=== PATIENT | female | born 1960 ===

== ENCOUNTER → 2023-10-15 16:35 | Outpatient (REF) | payer OTHER, SELFPAY ==
[2023-10-15 17:36] LABS: % Basophils 1.4 % (0-2); % Immature Granulocytes 1.4 % (0-0.5); % Lymphocytes 31.3 % (20.5-51.1); % Monocytes 10.2 % (1.7-9.3); % Neutrophils 52.7 % (42.2-75.2); Absolute Basophils 0.1 10^3/uL (0-0.2); Absolute Eosinophils 0.2 10^3/uL (0-0.7); Absolute Immature Granulocytes 0.1 10^3/uL (0-0.05); Absolute Lymphocytes 1.9 10^3/uL (1.2-3.4); Absolute Monocytes 0.6 10^3/uL (0.1-0.6); Absolute Neutrophils 3.1 10^3/uL (1.4-6.5); Hematocrit 38.2 % (37.0-47.0); Hemoglobin 12.6 g/dL (12.0-16.0); Mean Corpuscular Hgb 26.1 pg (27.0-31.0); Mean Corpuscular Volume 79.1 fL (81.0-99.0); Nucleated Red Blood Cells % 0 %; Platelet Count 15 10^3/uL (130-400); Red Blood Cell Count 4.83 10^6/uL (4.20-5.40); Red Cell Dist. Width 14.2 % (11.5-14.5); White Blood Cell Count 5.9 10^3/uL (4.8-10.8)
== END ==
LOC: CLAB 16:35
PROVIDERS: ATTENDING PHYSICIAN Nurse Practitioner Family
DX: D69.6 Thrombocytopenia, unspecified (principal); R23.3 Spontaneous ecchymoses; D69.3 Immune thrombocytopenic purpura; K76.0 Fatty (change of) liver, not elsewhere classified
CPT/HCPCS: 36415; 85025